=== PATIENT | male | born 1945 | race Caucasian/White ===

== ENCOUNTER 2023-09-19 16:50 | Inpatient (IN) | payer MEDICARE, BC ==
[~2023-09-19] VITALS: Ht 182.9 cm; Wt 74.4 kg
[2023-09-19 17:26] LABS: BASOPHILS % (AUTO) 0.5 % (0.0-2.0); EOSINOPHILS % (AUTO) 0.7 % (0.0-6.0); HEMATOCRIT 47 % (39-51); LYMPHOCYTES # (AUTO) 0.6 K/uL (0.8-4.8); LYMPHOCYTES % (AUTO) 9.2 % (20.0-44.0); MEAN CORPUSCULAR HEMOGLOBIN 32 PG (26.0-33.0); MEAN CORPUSCULAR HGB CONC 34 g/dl (31.0-36.0); MEAN CORPUSCULAR VOLUME 94 fL (80-96); MONOCYTES # (AUTO) 0.4 K/uL (0.1-1.30); MONOCYTES % (AUTO) 7.1 % (2.0-12.0); NEUTROPHILS % (AUTO) 82.5 % (43.0-81.0); PLATELET COUNT (AUTO) 122 K/uL (150-450); RED BLOOD CELL COUNT(AUTO) 5.05 MIL/uL (4.5-6.0); RED CELL DISTRIBUTION WIDTH 13.7 % (11.5-15.0)
[2023-09-19 17:35] LABS: CALCIUM, SERUM 8.9 mg/dL (8.5-10.1); CARBON DIOXIDE 27 mmol/L (21-32); CHLORIDE 102 mmol/L (98-107); CREATININE 0.8 mg/dL (0.6-1.3); GLUCOSE 106 mg/dL (74-106); POTASSIUM 4.6 mmol/L (3.5-5.1); SODIUM SERUM 137 mmol/L (136-145); UREA NITROGEN, BLOOD 23 mg/dL (7-18)
[2023-09-19 17:41] LABS: ALANINE AMINOTRANSFERASE 35 U/L (12-78); ALBUMIN 3.3 g/dL (3.4-5.0); ALCOHOL, BLOOD < 3 mg/dL (0-10); ALKALINE PHOSPHATASE 103 U/L (46-116); ASPARTATE AMINOTRANSFERASE 23 U/L (15-37); BILIRUBIN,DIRECT 0.2 mg/dL (0.0-0.2); BILIRUBIN,TOTAL 0.6 mg/dL (0.2-1.0); TOTAL PROTEIN, SERUM 6.7 g/dL (6.4-8.2)
[2023-09-19 17:44] LABS: ACETAMINOPHEN 0 ug/ml (10-30); SALICYLATE 0.8 mg/dL (2.8-20.0)
[2023-09-19 18:50] LABS: APPEARANCE,URINE CLEAR (CLEAR); BILIRUBIN,URINE NEGATIVE (NEGATIVE); BLOOD, URINE 1+ Ery/uL (NEGATIVE); COLOR,URINE YELLOW (YELLOW); KETONES,URINE NEGATIVE (NEGATIVE); LEUKOCYTE ESTERASE ,URINE NEGATIVE (NEGATIVE); NITRITE, URINE NEGATIVE (NEGATIVE); PROTEIN,URINE NEGATIVE (NEGATIVE); UGLUCOSE NEGATIVE (NEGATIVE); UROBILINOGEN,URINE 0.2 EU/dL (0.2)
[2023-09-19] MEDS ORDERED: ATOR20TA PO (18:56)
[2023-09-19] MEDS ORDERED: ESCI20TA PO (18:56)
[2023-09-19] MEDS ORDERED: SILO8CAP6 PO (18:56)
[2023-09-19] MEDS ORDERED: LIPA1CAP9 PO (18:56)
[2023-09-19] MEDS ORDERED: [UNRECOGNIZED DRUG - OTHER] PO (18:56)
[2023-09-19] MEDS ORDERED: METO10TA3 PO (18:56)
[2023-09-19] MEDS ORDERED: TUMS PO (18:56)
[2023-09-19] MEDS ORDERED: DESI25TA16 PO (18:56)
[2023-09-19] MEDS ORDERED: HYDR-3980 PO (18:56)
[2023-09-19] MEDS ORDERED: DICY20TA11 PO (18:56)
[2023-09-19] MEDS ORDERED: POLY17PO4 PO (18:56)
[2023-09-19] MEDS ORDERED: DOCU-275 PO (18:56)
[2023-09-19] MEDS ORDERED: ALPR0.25 PO (18:56)
[2023-09-19] MEDS ORDERED: LEVO-146 PO (18:56)
[2023-09-19] MEDS ORDERED: GABA300C PO (18:56)
[2023-09-19] MEDS ORDERED: CITRUCEL PO (18:56)
[2023-09-19 18:58] LABS: ADD URINE CULTURE NO; BACTERIA,URINE None seen /HPF (None Seen); MUCUS,URINE Few /LPF (None Seen); SQUAMOUS EPITHELIAL CELL,UR 0-2 /HPF (None Seen); WBC,URINE 0-2 /HPF (0-3)
[2023-09-19 19:03] LABS: AMPHETAMINE, URINE NEGATIVE (NEGATIVE); BARBITURATE, URINE NEGATIVE (NEGATIVE); CANNABINOID, URINE NEGATIVE (NEGATIVE); COCCAINE, URINE NEGATIVE (NEGATIVE); PHENCYCLIDINE SCREEN,URINE NEGATIVE (NEGATIVE)
[2023-09-19 19:05] LABS: BENZODIAZEPINE, URINE POSITIVE (NEGATIVE); OPIATE, URINE POSITIVE (NEGATIVE)
[2023-09-19] MEDS: BLOOD SUGAR DIAGNOSTIC 1 EACH STRIP IN ONE (22:41)
[2023-09-19] MEDS: LORAZEPAM 0.5 MG TABLET PO PRN (22:43)
[2023-09-19 23:29] VITALS: BP 123/74; TEMP 98; O2SAT 98
[2023-09-20] MEDS: ACETAMINOPHEN 325 MG TABLET PO PRN (02:05)
[2023-09-20 07:19] LABS: BASOPHILS % (AUTO) 0.6 % (0.0-2.0); EOSINOPHILS # (AUTO) 0.1 K/uL (0.0-0.7); EOSINOPHILS % (AUTO) 2.4 % (0.0-6.0); HEMATOCRIT 48 % (39-51); HEMOGLOBIN 16.4 g/dL (13.5-17.5); LYMPHOCYTES # (AUTO) 0.8 K/uL (0.8-4.8); LYMPHOCYTES % (AUTO) 16.7 % (20.0-44.0); MEAN CORPUSCULAR HEMOGLOBIN 32 PG (26.0-33.0); MEAN CORPUSCULAR HGB CONC 35 g/dl (31.0-36.0); MEAN CORPUSCULAR VOLUME 93 fL (80-96); MONOCYTES # (AUTO) 0.4 K/uL (0.1-1.30); MONOCYTES % (AUTO) 8.5 % (2.0-12.0); NEUTROPHILS # (AUTO) 3.6 K/uL (1.8-8.9); NEUTROPHILS % (AUTO) 71.8 % (43.0-81.0); PLATELET COUNT (AUTO) 124 K/uL (150-450); RED CELL DISTRIBUTION WIDTH 13.4 % (11.5-15.0)
[2023-09-20 07:52] LABS: CHOLESTEROL 143 mg/dL (<200); HDL CHOLESTEROL 52 mg/dL (40-60); LDL 77 mg/dL (0-99); TRIGLYCERIDES 90 mg/dL (30-150)
[2023-09-20 07:55] LABS: ALANINE AMINOTRANSFERASE 36 U/L (12-78); ALBUMIN 3.1 g/dL (3.4-5.0); ALKALINE PHOSPHATASE 101 U/L (46-116); ASPARTATE AMINOTRANSFERASE 26 U/L (15-37); BILIRUBIN,TOTAL 0.8 mg/dL (0.2-1.0); CARBON DIOXIDE 21 mmol/L (21-32); CHLORIDE 105 mmol/L (98-107); CREATININE 0.7 mg/dL (0.6-1.3); GLUCOSE 109 mg/dL (74-106); POTASSIUM 4.1 mmol/L (3.5-5.1); SODIUM SERUM 137 mmol/L (136-145); TOTAL PROTEIN, SERUM 6.4 g/dL (6.4-8.2); UREA NITROGEN, BLOOD 16 mg/dL (7-18)
[2023-09-20] MEDS ORDERED: HOME MED MISCELLANEOUS PO SCH (08:00)
[2023-09-20] MEDS: LIPASE/PROTEASE/AMYLASE 1 EACH CAPSULE.DR PO SCH (08:02)
[2023-09-20 09:13] VITALS: BP 133/104; TEMP 97.7; O2SAT 97
[2023-09-20] MEDS: VENLAFAXINE XR 37.5 MG CAP.SR.24H PO SCH (09:39)
[2023-09-20] MEDS: MAGNESIUM HYDROXIDE 30 ML UDC PO PRN (09:43)
[2023-09-20] MEDS ORDERED: METOCLOPRAMIDE HCL 10 MG TABLET PO PRN (14:00)
[2023-09-20] MEDS: DOCUSATE SODIUM 100 MG CAPSULE PO SCH (14:12)
[2023-09-20] MEDS: POLYETHYLENE GLYCOL 3350 17 GM POWD.PACK PO SCH (14:12)
[2023-09-20] MEDS: GABAPENTIN 300 MG CAPSULE PO SCH (14:12)
[2023-09-20] MEDS: LEVOTHYROXINE SODIUM 50 MCG TABLET PO SCH (14:14)
[2023-09-20] MEDS: HYDROCODONE/APAP 10/325MG TABLET PO PRN (16:00)
[2023-09-20 16:17] VITALS: BP 132/82; TEMP 98.2; O2SAT 98
[2023-09-20] MEDS: DICYCLOMINE HCL 10 MG CAPSULE PO SCH (16:39)
[2023-09-20] MEDS ORDERED: AMYLASE/LIPASE/PROTEASE 1 CAP CAPSULE.DR PO SCH (18:00)
[2023-09-20 20:21] VITALS: BP 130/92; TEMP 98.1; O2SAT 98
[2023-09-20] MEDS: ATORVASTATIN 10 MG TABLET PO SCH (21:17)
[2023-09-20] MEDS: QUETIAPINE FUMARATE 25 MG TABLET PO SCH (21:17)
[2023-09-20] MEDS: DESIPRAMINE HCL 25 MG PO SCH (21:18)
[2023-09-20] MEDS: ZOLPIDEM TARTRATE 5 MG TABLET PO PRN (21:52)
[2023-09-21 08:00] VITALS: BP 121/84; TEMP 98.2; O2SAT 98
[2023-09-21 16:00] VITALS: BP 107/76; TEMP 98.1; O2SAT 97
[2023-09-21] MEDS: NA PHOS,M-B/NA PHOS,DI-BA 1 EA ENEMA RC PRN (19:28)
[2023-09-21 20:12] VITALS: BP 110/84; TEMP 98.1; O2SAT 98
[2023-09-22 08:00] VITALS: BP 119/79; TEMP 98.7; O2SAT 98
[2023-09-22] MEDS: MAG HYDROX/AL HYDROX/SIMETH 30 ML UDC PO PRN (14:33)
[2023-09-22 16:00] VITALS: BP 120/76; TEMP 98.1; O2SAT 99
[2023-09-22 20:06] VITALS: BP 110/69; TEMP 98.4; O2SAT 99
[2023-09-23 08:00] VITALS: BP 117/81; TEMP 97.7; O2SAT 98
[2023-09-23] MEDS: QUETIAPINE FUMARATE 25 MG TABLET PO SCH (09:30)
[2023-09-23 16:00] VITALS: BP 121/76; TEMP 98.6; O2SAT 98
[2023-09-23 20:00] VITALS: BP 110/75; TEMP 98.4; O2SAT 100
[2023-09-24 08:00] VITALS: BP_SYST 114; BP_SYST 122; BP_DIAS 81; BP_DIAS 88; TEMP 97.9; TEMP 98; O2SAT 95; O2SAT 98
[2023-09-24 20:00] VITALS: BP 113/74; TEMP 98; O2SAT 97
[2023-09-25 08:00] VITALS: BP 132/83; TEMP 97.7; O2SAT 97
[2023-09-25] MEDS: ARIPIPRAZOLE 5 MG TABLET PO SCH (10:22)
[2023-09-25 16:00] VITALS: BP 117/76; TEMP 98; O2SAT 98
[2023-09-25 20:00] VITALS: BP 112/64; TEMP 98.1; O2SAT 98
[2023-09-25] MEDS: AMITRIPTYLINE HCL 25 MG TABLET PO SCH (21:16)
[2023-09-26 08:00] VITALS: BP 98/61; TEMP 98.4; O2SAT 99
[2023-09-26 16:00] VITALS: BP 124/79; TEMP 98.4; O2SAT 99
[2023-09-26 21:08] VITALS: BP 120/80; TEMP 98.4; O2SAT 99
[2023-09-27 08:00] VITALS: BP 150/91; TEMP 98.6; O2SAT 98
[2023-09-27 16:00] VITALS: BP 125/77; TEMP 98.1; O2SAT 98
[2023-09-28 08:00] VITALS: BP 102/75; TEMP 97.7; O2SAT 98
[2023-09-28] MEDS: VENLAFAXINE XR 150 MG CAP.SR.24H PO SCH (08:40)
[2023-09-28] MEDS ORDERED: VENLAFAXINE XR 150 MG CAP.SR.24H PO SCH (09:00)
[2023-09-28 16:00] VITALS: BP 104/67; TEMP 98.1; O2SAT 97
[2023-09-28 20:23] VITALS: BP 108/80; TEMP 98.2; O2SAT 97
[2023-09-28] MEDS: AMITRIPTYLINE HCL 25 MG TABLET PO SCH (21:07)
[2023-09-28] MEDS: diphenhydrAMINE HCL 50 MG CAPSULE PO PRN (21:59)
[2023-09-29 08:00] VITALS: BP 97/74; TEMP 98; O2SAT 97
[2023-09-29 16:03] VITALS: BP 107/71; TEMP 98.2; O2SAT 97
[2023-09-29 20:19] VITALS: BP 110/72; TEMP 98.1; O2SAT 99
[2023-09-30 08:00] VITALS: BP 102/70; TEMP 98.7; O2SAT 100
[2023-09-30 16:00] VITALS: BP 98/69; TEMP 98.1; O2SAT 94
[2023-09-30 20:00] VITALS: BP 102/64; TEMP 98.4; O2SAT 98
[2023-10-01 08:00] VITALS: BP 98/64; TEMP 98; O2SAT 98
[2023-10-01] MEDS: GABAPENTIN 100 MG CAPSULE PO SCH (12:03)
[2023-10-01 16:00] VITALS: BP 99/70; TEMP 97.9; O2SAT 98
[2023-10-01 20:00] VITALS: BP_SYST 111; BP_SYST 112; BP_DIAS 71; BP_DIAS 76; TEMP 98.3; O2SAT 100
[2023-10-02 08:34] VITALS: BP 106/73; TEMP 98.2; O2SAT 99
[2023-10-02 16:00] VITALS: BP 106/72; TEMP 97.5; O2SAT 100
[2023-10-02 20:00] VITALS: BP 110/69; TEMP 98.1; O2SAT 97
[2023-10-03 08:00] VITALS: BP 118/76; TEMP 97.7; O2SAT 95
[2023-10-03 16:00] VITALS: BP 116/70; TEMP 98.7; O2SAT 98
[2023-10-03 20:00] VITALS: BP 115/86; TEMP 98.4; O2SAT 98
[2023-10-04 08:00] VITALS: BP 113/77; TEMP 98.4; O2SAT 100
[2023-10-04 16:07] VITALS: BP 122/79; TEMP 98.2; O2SAT 98
[2023-10-04 21:24] VITALS: BP 103/64; TEMP 98.2; O2SAT 98
[2023-10-05 08:00] VITALS: BP 129/82; TEMP 98.7; O2SAT 97
== END 2023-10-05 14:38 | disposition home or self-care (01) | DRG 885 ==
LOC: ER 17:05 → UNDOADMIN 19:17 → GPS 19:17
PROVIDERS: ADMIT Psychiatry & Neurology Psychiatry
DX: F33.3 Major depressive disorder, recurrent, severe with psychotic symptoms (principal); R45.851 Suicidal ideations; F41.9 Anxiety disorder, unspecified; F43.23 Adjustment disorder with mixed anxiety and depressed mood; Z20.822 Contact with and (suspected) exposure to COVID-19; E03.9 Hypothyroidism, unspecified; F43.10 Post-traumatic stress disorder, unspecified; G89.29 Other chronic pain; Z73.6 Limitation of activities due to disability; Z79.899 Other long term (current) drug therapy; F45.0 Somatization disorder
CPT/HCPCS: 36415; 80048-TC; 80053-TC; 80061-TC; 80076-TC; 81001; 85025-TC; 87081-TC; 97116-TC; 97530-TC; G0480; Q0163